=== PATIENT | male | born 1980 | race Caucasian/White ===

== ENCOUNTER 2024-05-12 16:05 | Emergency (ER) | payer OTHER, SELFPAY ==
--- NOTE | ~2024-05-12 | CT_ITS ---
CLINICAL HISTORY: ? stone CT abdomen and pelvis without contrast Comparison: None Findings: The lung bases are clear. Enlarged, steatotic liver measuring 23 cm in the craniocaudal dimension. Splenomegaly measuring 14.6 cm in the AP dimension. Mild fatty atrophy of the pancreas. Nodular thickening of the adrenal glands. 4.1 cm round fat density along the lower edge of the lateral limb of the left adrenal gland, likely a myelolipoma. No hydronephrosis or urolithiasis. Retroaortic left renal vein. Abdominal aorta is normal in caliber. Subcentimeter bilateral para-aortic lymph nodes, nonspecific. No bowel obstruction, pneumoperitoneum, or pneumatosis. Normal appendix. Small fat containing umbilical hernia. Mild diffuse urinary bladder wall thickening. No acute fracture. IMPRESSION: 1. Mild diffuse urinary bladder wall thickening. Correlate for cystitis. No hydronephrosis or urolithiasis. 2. Hepatosplenomegaly. Hepatic steatosis. This document has been electronically signed by: Jorge Guillen MD on 05/12/2024 18:43:18
--- NOTE | ~2024-05-12 | CT_ITS ---
CLINICAL HISTORY: dizzness CT head without contrast Comparison: None Findings: No intra-axial mass, midline shift, hydrocephalus, or acute hemorrhage. No significant atrophy-like change or white matter disease. The visualized paranasal sinuses and mastoid air cells are normal. The orbits are unremarkable. There is no acute fracture. IMPRESSION: 1. No acute intracranial findings. This document has been electronically signed by: Jorge Guillen MD on 05/12/2024 18:34:55
[2024-05-12 16:09] VITALS: BP 100/60; BP 105/63; PULSE 74; PULSE 78; RESP 18; TEMP 36.6; O2SAT 98; O2SAT 99; BMI 48.2
--- NOTE | 2024-05-12 16:51 | ED.GENADULT ---
HPI - General Adult General Chief complaint: Nausea/Vomiting/Diarrhea Stated complaint: sick, nausea,chills Time Seen by Provider: 05/12/24 16:41 Source: patient Limitations: no limitations History of Present Illness HPI narrative: This is 43 years old the patient presented to the emergency department with a chief complaint of dizziness generalized malaise, the patient is an inpatient [facility]. He denies any chest pain shortness of breath fever vomiting. He has a history of hypertension diabetes obesity sleep apnea. Onset (ago): day(s) (1) Radiation: non-radiation Severity: moderate Quality: burning Pain Consistency: constant Relieving factors: none Exacerbating factors: none Related Data Allergies Allergy/AdvReac Type Severity Reaction Status Date / Time No Known Allergies Allergy Verified 05/12/24 16:17 Review of Systems Constitutional: Constitutional: Reports no additional constitutional complaints Cardiovascular: Cardiovascular: Reports no additional cardiovascular complaints Psychiatric: Psychiatric: Reports as per HPI PMFSH Past Medical History [facility] Narrative: Diabetes, hypertension, bipolar disorder/anxiety Social History Social History Smoked in Last 30 Days: No Use of substances other than those prescribed or required for medical reasons: No Advance Directives: No Advance Directives Information Provided: No Physical Exam ED Vital Signs: Vital Signs - 24 hr 05/12/24 16:09 Temperature 97.8 F Pulse Rate 78 Respiratory Rate 18 Blood Pressure 105/63 Pulse Oximetry 98 Oxygen Delivery Method Room Air BMI result Body Mass Index 48.2 No acute distress Const General: cooperative Nutritional Appearance: well nourished Orientation/consciousness: patient oriented x3 Limitations: no limitations HENMT Head: Yes normal to inspection General nose exam: Normal external nose present Mouth: Normal oral and palatal mucosa present Neck Neck: Yes normal visual inspection Resp Effort & Inspection: normal respiratory effort Cardio Jugular venous distension: no JVD Rate: regular rate Rhythm: regular rhythm GI Inspection: Yes normal to inspection Palpation (GI): Soft to palpation, not firm, nontender and no guarding Percussion: Yes normal to percussion Auscultation: normal bowel sounds Skin General skin exam: no rashes or lesions noted and elasticity normal Lesions: no lesions Rashes: no rashes Trauma: no lacerations or abrasions Neuro General: patient oriented x3 Course Reevaluation(s) Reevaluation #1: Remained stable vital signs normal afebrile, labs reviewed his creatinine is 1.6 we do not have a prior creatinine at [facility] database, however he has a history of diabetes at this most likely is chronic kidney disease due to his diabetes. Of the medical record the [facility] is listed as problem list CKD Medications Administered Discontinued Medications Generic Name Dose Route Start Last Admin Trade Name Freq PRN Reason Stop Dose Admin Meclizine HCl 25 mg 05/12/24 16:47 05/12/24 16:59 Meclizine Hcl 25 Mg Tablet PO 05/12/24 16:48 25 mg ONCE ONE Administration Medical Decision Making Medical Decision Making [facility] Narrative: Patient presented to the emergency department from [facility] with complain of dizziness we will obtain labs we will administer meclizine and reassess Differential Diagnosis Differential Diagnoses: The differential diagnosis associated with the presentation includes Viral syndrome/ labyrinthitis Admission/Observation Consideration of admission/observation: Escalation of care including admission/observation considered Lab Data [facility] Lab Attestation statement: I reviewed the patient's lab results. 05/12/24 17:26 05/12/24 17:26 Labs: Lab Results 05/12/24 05/12/24 05/12/24 Range/Units 16:40 17:26 19:45 WBC 6.8 (4.8-10.8) X10*3/uL RBC 3.34 L (4.60-5.80) X10*6/uL Hgb 10.7 L (14.0-18.0) g/dl Hct 31.7 L (42.0-52.0) % MCV 94.9 (80.0-98.0) fL MCH 32.0 (27.0-33.0) pg MCHC 33.8 (31.0-36.0) g/dl RDW 14.1 (11.0-16.0) % Plt Count 120 L (160-400) X10*3/uL MPV 8.7 L (9.4-12.4) fL Immature Gran % (Auto) 0.4 (0.0-0.4) % Neut % (Auto) 55.7 (45-73) % Lymph % (Auto) 31.3 (20-40) % [place] % (Auto) 6.9 (2-11) % Eos % (Auto) 5.4 H (0-4) % Baso % (Auto) 0.3 (0-2) % Lymph # (Auto) 2.1 (1.2-4.9) X10*3/uL [place] # (Auto) 0.5 (0.1-1.2) X10*3/uL Eos # (Auto) 0.4 (0.0-0.4) X10*3/uL Baso # (Auto) 0.0 (0.0-0.2) X10*3/uL Abs Immat Gran (auto) 0.03 (0.00-0.03) X10*3/uL Absolute Neuts (auto) 3.8 (2.0-8.3) x10*3/uL Absolute Nucleated RBC 0.000 (0.0-0.012) X10*3/uL Nucleated RBC % (auto) 0.0 (0.0-0.2) /100WBC Sodium 142 (135-145) mmol/L Potassium 4.8 (3.3-5.1) mmol/L Chloride 110 H (96-108) mmol/L Carbon Dioxide 23 (22-29) mmol/L Anion Gap 14 (12-20) BUN 33 H (9-16) mg/dL Creatinine 1.68 H (0.5-1.4) mg/dL Estim Creat Clear Calc 88.1 Estimated GFR 45 Random Glucose 92 (60-115) mg/dL Calcium 9.4 (8.4-10.2) mg/dL Total Bilirubin 0.2 (0.0-1.0) mg/dL AST 57 H (5-37) U/L ALT 41 H (0-40) U/L Alkaline Phosphatase 89 (39-117) U/L Total Protein 7.7 (6.5-8.0) g/dL Albumin 3.9 (3.5-5.0) g/dL Lipase 54 (8-78) U/L Urine Color Yellow Urine Appearance Clear Urine pH 5.5 (5.0-9.0) Ur Specific [place] 1.015 (1.005-1.025) Urine Protein Negative (Neg-Trace) mg/dL Urine Glucose (UA) 250 H (Negative) mg/dL Urine Ketones Negative (Negative) mg/dL Urine Blood Negative (Negative) Urine Nitrite Negative (Negative) Ur Leukocyte Esterase Trace H (Negative) Urine RBC 0-2 (0-2) /HPF Urine WBC 0-5 (0-5) /HPF Ur Squamous Epith Cells 0-2 (0-2) /HPF Urine Bacteria None Seen (None Seen) Hyaline Casts 0-2 (0-2) /LPF Influenza Type A (PCR) NEGATIVE (Negative) Influenza Type B (PCR) NEGATIVE (Negative) RSV RNA Qual (PCR) NEGATIVE (Negative) SARS-CoV-2 RNA (RT-PCR) NEGATIVE (Negative) Radiology Impression Discussion of test interpretation with radiology: I have reviewed the radiologist's reading. Independent Historian Records from [facility] Chronic Conditions Patient?s care impacted by: Diabetes Discharge Plan Discharge Clinical Impression: Dizziness CKD (chronic kidney disease) Qualifiers: Chronic kidney disease stage: unspecified stage Qualified Code(s): N18.9 - Chronic kidney disease, unspecified Patient Disposition: Xfer [facility] Instructions: Dizziness (ED) Additional Instructions: Follow-up with your primary care physician drink lots of fluids, you white count was normal your hemoglobin was normal your CT scan of the head and abdomen was normal. You do have mildly elevated creat 1.6 but you have CKD 2th to diabetes Print Language: Turkish
[2024-05-12] MEDS: Meclizine HCl 25 MG TABLET PO (16:59)
[2024-05-12 17:23] LABS: Influenza A PCR NEGATIVE (Negative); Influenza B PCR NEGATIVE (Negative); Resp Syncy Virus RNA Qual PCR NEGATIVE (Negative); SARS COV2 PCR INHOUSE NEGATIVE (Negative)
[2024-05-12 17:33] LABS: Basophils Percent Auto 0.3 % (0-2); Eosinophils Absolute Auto 0.4 X10*3/uL (0.0-0.4); Eosinophils Percent Auto 5.4 % (0-4); Hematocrit 31.7 % (42.0-52.0); Hemoglobin 10.7 g/dl (14.0-18.0); Imm Gran Abs Auto 0.03 X10*3/uL (0.00-0.03); Imm Gran Pct Auto 0.4 % (0.0-0.4); Lymphocytes Absolute Auto 2.1 X10*3/uL (1.2-4.9); Lymphocytes Percent Auto 31.3 % (20-40); MANUAL DIFF FLAG NO; Mean Corpuscular HGB Conc 33.8 g/dl (31.0-36.0); Mean Corpuscular Volume 94.9 fL (80.0-98.0); Mean Platelet Volume 8.7 fL (9.4-12.4); Monocytes Absolute Auto 0.5 X10*3/uL (0.1-1.2); Monocytes Percent Auto 6.9 % (2-11); Neutrophils Absolute Auto 3.8 x10*3/uL (2.0-8.3); Neutrophils Percent Auto 55.7 % (45-73); Platelet Count 120 X10*3/uL (160-400); Red Blood Count 3.34 X10*6/uL (4.60-5.80); Red Cell Distribution Width 14.1 % (11.0-16.0); White Blood Count 6.8 X10*3/uL (4.8-10.8)
[2024-05-12 17:45] LABS: Lipase 54 U/L (8-78)
[2024-05-12 17:48] LABS: Alanine Aminotransferase 41 U/L (0-40); Albumin Level 3.9 g/dL (3.5-5.0); Alkaline Phosphatase 89 U/L (39-117); Anion Gap 14 (12-20); Aspartate Amino Transferase 57 U/L (5-37); Bilirubin Total 0.2 mg/dL (0.0-1.0); Blood Urea Nitrogen 33 mg/dL (9-16); Calcium 9.4 mg/dL (8.4-10.2); Carbon Dioxide 23 mmol/L (22-29); Chloride 110 mmol/L (96-108); Creatinine Clr Calc Pharmacy 88.1; Estimated Glomerular Filt Rate 45; Glucose Random 92 mg/dL (60-115); Potassium 4.8 mmol/L (3.3-5.1); Sodium 142 mmol/L (135-145); Total Protein 7.7 g/dL (6.5-8.0)
--- NOTE | 2024-05-12 18:18 | PC.NURSE ---
Pt has sitter and is in safety clothing. denies SI or HI, [facility]
[2024-05-12 19:53] LABS: Appearance Urine Clear; Color Urine Yellow; Glucose Urine UA 250 mg/dL (Negative); Leukocyte Esterase Urine Trace (Negative); Nitrite Urine Negative (Negative); PH 5.5 (5.0-9.0); Specific Gravity - Urine 1.015 (1.005-1.025); UMIC TRIGGER UACC YES; Urine Blood Negative (Negative); Urine Ketones Negative (Negative); Urine Protein Negative (Neg-Trace)
[2024-05-12 19:58] LABS: Bacteria Urine None Seen (None Seen); Hyaline Casts Urine 0-2 /LPF (0-2); RBC Urine 0-2 /HPF (0-2); Squamous Epithelial Cell Urine 0-2 /HPF (0-2); WBC Urine 0-5 /HPF (0-5)
--- NOTE | 2024-05-12 20:54 | PC.NURSE ---
Per Dr. Wilkinson, IV NS on hold.
--- NOTE | 2024-05-12 21:26 | MHC.EDTECH ---
Addendum entered by Bruna Plata 05/12/24 22:40: --continued-- nurse for floor. Gave alternate fax # . Still waiting for sect 21 at this time. Addendum entered by Bruna Plata 05/12/24 22:34: Calling Jarrett again @[phone] and spoke with Addendum entered by Bruna Plata 05/12/24 21:31: Called Jarrett back @[phone] to check on status of sect 21. [employer] Operator was contacted and I was informed the sect. 21 was being sent at this time. Original Note: No sect 21 found for pt to be d/c back to facility so Jarrett was called @[phone] to request the sect be faxed.
[2024-05-13 01:08] VITALS: BP 112/61; PULSE 81; RESP 16; TEMP 36.8; O2SAT 99
[2024-05-13 02:31] VITALS: BP 116/79; PULSE 82; RESP 14; TEMP 36.7; O2SAT 98
== END 2024-05-13 02:33 ==
PROVIDERS: Emergency Provider Emergency Medicine
DX: R42 Dizziness and giddiness (principal); R53.81 Other malaise; N18.9 Chronic kidney disease, unspecified; R11.2 Nausea with vomiting, unspecified; R16.2 Hepatomegaly with splenomegaly, not elsewhere classified; Z03.818 Encounter for observation for suspected exposure to other biological agents ruled out
CPT/HCPCS: 0241U; 36415; 70450; 74176; 80053; 81001; 83690; 85025; 99285

== ENCOUNTER → 2024-05-12 16:47 | Outpatient (BNV) | payer OTHER, SELFPAY | PROVIDERS: Emergency Provider Emergency Medicine; Visit Provider Radiology Diagnostic Radiology | DX: N30.00 Acute cystitis without hematuria (principal); K76.0 Fatty (change of) liver, not elsewhere classified; R16.2 Hepatomegaly with splenomegaly, not elsewhere classified; R42 Dizziness and giddiness | CPT/HCPCS: 70450; 74176 ==